=== PATIENT | female | born 1970 | race African-American/Black ===

== ENCOUNTER 2021-09-30 17:06 | Emergency (ER) | payer MEDICAID ==
[~2021-09-30] VITALS: Ht 175.3 cm; Wt 107.0 kg
[2021-09-30 17:14] VITALS: BP 116/89
[2021-09-30 18:45] LABS: HEMATOCRIT. 41.4 % (36.0-48.0); HEMOGLOBIN. 13.8 g/dL (12.0-16.0); MEAN CORPUSCULAR HEMOGLOBIN 27.9 pg (28.0-32.0); MEAN CORPUSCULAR VOLUME 83.9 fL (81.0-99.0); PLATELET 181 x1000/uL (130-400); RED BLOOD CELL COUNT 4.93 mill/uL (4.2-5.4); RED CELL DISTRIBUTION WIDTH 12.9 % (11.6-14.6)
[2021-09-30 18:46] LABS: CHLORIDE 104 mEq/L (98-107)
[2021-09-30] MEDS ORDERED: LISI10TA26 MT (19:05)
[2021-09-30 19:48] LABS: PLATELET ESTIMATE NORMAL
== END 2021-09-30 19:47 | disposition home or self-care (01) ==
LOC: ER 17:06
DX: I10 Essential (primary) hypertension (principal)
CPT/HCPCS: 36415; 80053; 85025; 99283

== ENCOUNTER 2024-09-25 10:18 | Emergency (ER) | payer MEDICAID, OTHER ==
[~2024-09-25] VITALS: Ht 175.3 cm; Wt 101.6 kg
[~2024-09-25 10:18] MED LIST: LISI10TA26 MT
[2024-09-25 10:19] VITALS: O2SAT 99
[2024-09-25 10:24] VITALS: BP 164/109; PULSE 84; RESP 16; TEMP 37.1; O2SAT 98
[2024-09-25] MEDS ORDERED: CAPS1ADH9 TP (13:26)
== END 2024-09-25 13:30 | disposition home or self-care (01) ==
LOC: ER 10:18
DX: M79.602 Pain in left arm (principal); E78.00 Pure hypercholesterolemia, unspecified; E11.9 Type 2 diabetes mellitus without complications; I10 Essential (primary) hypertension; Z90.710 Acquired absence of both cervix and uterus
CPT/HCPCS: 99283; 73090; A6449; A4565